=== PATIENT | male | born 1955 | race Caucasian/White ===

== ENCOUNTER 2016-12-26 10:17 | Emergency (ER) | payer OTHER ==
--- NOTE | 2016-12-26 11:32 | EDM.PDOC ---
ED HPI GENERAL MEDICAL PROBLEM - General Chief Complaint: Respiratory Problem Stated Complaint: Shortness of breath Time Seen by Provider: 12/26/16 11:15 Source of Information: Reports: Patient, RN Notes Reviewed History Limitations: Reports: No Limitations - History of Present Illness INITIAL COMMENTS - FREE TEXT/NARRATIVE: 61 year old male presents to the ED with complaints of worsening dyspnea over the past roughly 4 months. The dyspnea is worse with exertion. He denies any chest pain with exertion or associated with the shortness of breath. He's had a cough for a couple weeks which seems to be worsening. It's non-productive. He denies fever or chills. He does have a history of SD several years ago with 1 stent. He is established with a Cardiolologist in [place] and had a normal stress test in July of this year. He says the shortness of breath is worsen when lying flat. He denies any lower extremity swelling or edema. He denies any recent travel, history of blood clots, calf pain, unilateral lower extremity swelling. 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 He says they rarely wear masks unless the dust level is very high. - Related Data Allergies Allergy/AdvReac Type Severity Reaction Status Date / Time No Known Allergies Allergy Verified 12/26/16 10:28 Home Meds: Home Meds Aspirin [Halfprin] 1 tab PO DAILY 01/23/16 [History] Calcium Carbonate/Vitamin D3 [Calcium 500-Vit D3 600 Tablet] 1 tab PO DAILY [History] Cyanocobalamin/FA/Pyridoxine [Folbee] 1 tab PO DAILY 01/23/16 [History] atorvaSTATin [Lipitor] 40 mg PO DAILY 01/23/16 [History] Albuterol [Proventil HFA] 2 puff INH QID PRN #1 inhaler 12/26/16 [Rx] Azithromycin [Zithromax] 250 mg PO DAILY #6 tablet 12/26/16 [Rx] Cholecalciferol (Vitamin D3) [D3 Dots] 2,000 unit PO DAILY 12/26/16 [History] Fenofibrate Nanocrystallized [Tricor] 145 mg PO DAILY 12/26/16 [History] Lutein 20 mg PO DAILY 12/26/16 [History] Metoprolol Succinate 25 mg PO DAILY 12/26/16 [History] Nitroglycerin [Nitrostat] 0.4 mg SL Q5M PRN 12/26/16 [History] predniSONE [Prednisone] 20 mg PO BID #10 tablet 12/26/16 [Rx] Past Medical History HEENT History: Reports: Impaired Vision Cardiovascular History: Reports: Aneurysm, High Cholesterol, Hypertension, SD, Stents Other Cardiovascular History: Stents 11 years ago Respiratory History: Reports: None Gastrointestinal History: Reports: None Genitourinary History: Reports: Renal Calculus Musculoskeletal History: Reports: None Neurological History: Reports: None Psychiatric History: Reports: None Endocrine/Metabolic History: Reports: None Hematologic History: Reports: None Immunologic History: Reports: None Oncologic (Cancer) History: Reports: None Dermatologic History: Reports: None - Infectious Disease History Infectious Disease History: Reports: None - Past Surgical History Head Surgeries/Procedures: Reports: None GI Surgical History: Reports: None Social & Family History - Family History Family Medical History: Noncontributory - Tobacco Use Smoking Status *Q: Former Smoker Used Tobacco, but Quit: No - Caffeine Use Caffeine Use: Reports: Coffee, Soda - Recreational Drug Use Recreational Drug Use: No ED ROS GENERAL - Review of Systems Review Of Systems: See Below Constitutional: Reports: No Symptoms. Denies: Fever, Chills Respiratory: Reports: Shortness of Breath, Cough. Denies: Pleuritic Chest Pain , Sputum, Hemoptysis Cardiovascular: Reports: Dyspnea on Exertion, Orthopnea. Denies: Chest Pain, Edema, Lightheadedness, Palpitations, Syncope GI/Abdominal: Reports: No Symptoms. Denies: Abdominal Pain, Diarrhea, Nausea, Vomiting ED EXAM, GENERAL - Physical Exam Exam: See Below Exam Limited By: No Limitations General Appearance: Alert, WD/WN, No Apparent Distress Respiratory/Chest: No Respiratory Distress, Lungs Clear, No Accessory Muscle Use , Chest Non-Tender, Decreased Breath Sounds Cardiovascular: Normal Peripheral Pulses, Regular Rate, Rhythm, No Edema, No JVD , No Murmur GI/Abdominal: Normal Bowel Sounds, Soft, Non-Tender Extremities: Normal Inspection, Normal Range of Motion, Non-Tender. No: Giovanny' s Sign, Leg Pain, Increased Warmth, Pallor, Redness EKG INTERPRETATION EKG Date: 12/26/16 Time: 11:27 Rhythm: NSR Rate (Beats/Min): 52 [place]: Normal P-Wave: Present QRS: Normal ST-T: Normal QT: Normal EKG Interpretation Comments: EKG read by Dr. Lima. NO acute ischemic changes. Course - Vital Signs Last Recorded V/S: Last Vital Signs Temp 97 F 12/26/16 10:20 Pulse 69 12/26/16 12:55 Resp 24 H 12/26/16 12:55 BP 144/90 H 12/26/16 12:55 Pulse Ox 94 L 12/26/16 12:55 - Orders/Labs/Meds Orders: Active Orders 24 hr Category Date Time Status Cardiac Monitoring [RC] . DIRECTED Care 12/26/16 11:20 Active EKG 12 Lead [EKG Documentation Completion] [RC] STAT Care 12/26/16 11:20 Active Labs: Laboratory Tests 12/26/16 12/26/16 Range/Units 11:32 11:32 WBC 7.87 (4.23-9.07) K/mm3 RBC 5.18 (4.63-6.08) M/mm3 Hgb 15.3 (13.7-17.5) gm/L Hct 44.3 (40.1-51.0) % MCV 85.5 (79.0-92.2) fl MCH 29.5 (25.7-32.2) pg MCHC 34.5 (32.2-35.5) g/dl RDW Std Deviation 41.4 (35.1-43.9) fL Plt Count 287 (163-337) K/mm3 MPV 9.1 L (9.4-12.3) fl Neutrophils % (Manual) 65 H (40-60) % Band Neutrophils % 0 (0-10) % Lymphocytes % (Manual) 27 (20-40) % Atypical Lymphs % 0 % Monocytes % (Manual) 6 (2-10) % Eosinophils % (Manual) 2 (0.8-7.0) % Basophils % (Manual) 0 L (0.2-1.2) Platelet Estimate Adequate RBC Morph Comment Normal Sodium 139 (136-145) mEq/L Potassium 4.1 (3.5-5.1) mEq/L Chloride 105 (98-107) mEq/L Carbon Dioxide 24 (21-32) mEq/L Anion Gap 14.1 (5-15) BUN 22 H (7-18) mg/dL Creatinine 1.0 (0.7-1.3) mg/dL Est Cr Clr Drug Dosing 64.13 mL/min Estimated GFR (MDRD) > 60 (>60) mL/min BUN/Creatinine Ratio 22.0 H (14-18) Glucose 104 (80-115) mg/dL Calcium 10.0 (8.5-10.1) mg/dL Total Bilirubin 0.4 (0.2-1.0) mg/dL AST 24 (15-37) U/L ALT 26 (16-63) U/L Alkaline Phosphatase 61 (46-116) U/L Troponin I < 0.017 (0.00-0.056) ng/mL C-Reactive Protein 0.6 (<1.0) mg/dL NT-Pro-B Natriuret Pep 45 (0-125) pg/mL Total Protein 7.2 (6.4-8.2) g/dl Albumin 3.6 (3.4-5.0) g/dl Globulin 3.6 gm/dL Albumin/Globulin Ratio 1.0 (1-2) - Re-Assessments/Exams Free Text/Narrative Re-Assessment/Exam: CBC, CMP, Troponin, and pro-BNP are all WNL. EKG is negative for acute ST segment changes. 2 view chest x-ray reveals normal heart size. No pulmonary infiltrates or effusions. Patient denies any recent chest pain in the last few months. He has no pain associated with his dyspnea on exertion. I suspect that his symptoms are related to the dust in his workplace. He was instructed to wear a mask at work. He says this is optional. I encouraged him to see his PCP Dr. Martinez next week for recheck. He is to return to the ER with any worsening symptoms or chest pain. He states understanding of this. Will start him on a z-pack, prednisone, and albuterol inhaler. Discharge instructions as documented. Departure - Departure Time of Disposition: 12:39 Disposition: Home, Self-Care 01 Condition: Good Clinical Impression: Shortness of breath, Cough - Discharge Information Prescriptions: Albuterol [Proventil HFA] 2 puff INH QID PRN #1 inhaler PRN Reason: Cough Azithromycin [Zithromax] 250 mg PO DAILY #6 tablet predniSONE [Prednisone] 20 mg PO BID #10 tablet Instructions: Shortness of Breath, [id number], Cough, Adult, [id number] Referrals: Satish Martinez Jr, MD [Primary Care Provider] - Forms: ED Department Discharge Additional Instructions: Wear mask while at work Return to ER with any chest pain or worsening symptoms Follow-up with Dr. Martinez next week Medications: 1. Azithromycin (z-pack) 2 tabs today then 1 tab daily for the next 4 days 2. Prednisone 20mg twice a day for 5 days 3. Albuterol inhaler, 2 puffs 4 times a day as needed for shortness of breath - My Orders Last 24 Hours: My Active Orders 12/26/16 11:20 Cardiac Monitoring [RC] . DIRECTED EKG 12 Lead [EKG Documentation Completion] [RC] STAT - Assessment/Plan Last 24 Hours: My Active Orders 12/26/16 11:20 Cardiac Monitoring [RC] . DIRECTED EKG 12 Lead [EKG Documentation Completion] [RC] STAT
--- NOTE | 2016-12-26 11:49 | CR ---
Chest: Two views of the chest were obtained. Comparison: No previous study. Heart size and mediastinum are normal. Lungs are clear. Bony structures are within normal limits for the patient's age. Impression: 1. Nothing acute is identified on two-view chest x-ray. Diagnostic code #2
[2016-12-26 13:01] VITALS: BP 144/90
== END 2016-12-26 12:55 | disposition home or self-care (01) ==
LOC: JD.ED 10:17
DX: R06.02 Shortness of breath (principal); R05 Cough; I25.2 Old myocardial infarction; I10 Essential (primary) hypertension; E78.00 Pure hypercholesterolemia, unspecified; Z87.442 Personal history of urinary calculi; Z79.899 Other long term (current) drug therapy; Z87.891 Personal history of nicotine dependence; Z79.82 Long term (current) use of aspirin
CPT/HCPCS: 36415; 71020; 71020-26; 80053; 83880; 84484; 85025; 86140; 93005; 99284; 99285-25

== ENCOUNTER 2019-11-09 07:00 | Day surgery (SDC) | payer MEDICARE, OTHER ==
[~2019-11-09 07:00] MED LIST: Lactated Ringers 1,000 ML IV SCH; Lidocaine 1%/Sod Bicarbonate in NS 8.4% 1 ML Syringe IDERM PRN; Sodium Chloride 0.9% 10 ML Syringe FLUSH PRN
[2019-11-09] MEDS ORDERED: Propofol 200 MG/20 ML SDV ONE (07:21)
[2019-11-09] MEDS ORDERED: Rocuronium 50 MG/5 ML Vial ONE (07:21)
[2019-11-09] MEDS ORDERED: Midazolam 1 MG/ML 2 ML SDV ONE (07:21)
[2019-11-09] MEDS ORDERED: fentaNYL 250 MCG/5 ML SDV ONE (07:21)
[2019-11-09] MEDS ORDERED: Succinylcholine/Sod PF 100 MG/5 ML SYRINGE IV ONE (07:22)
[2019-11-09] MEDS ORDERED: Lidocaine 1% 4 ML ONE (07:22)
[2019-11-09] MEDS ORDERED: Bupivacaine 0.5%/EPINEPHrine 1:200,000 50 ML MDV ONE (07:23)
[2019-11-09] MEDS ORDERED: Lidocaine 1% with EPINEPHrine 1:100,000 20 ML MDV ONE (07:23)
--- NOTE | 2019-11-09 07:41 | PCM.PREANE ---
Preanesthetic Assessment - Anesthesia/Transfusion/Family Hx Anesthesia History: Prior Anesthesia Without Reaction Family History of Anesthesia Reaction: No - Review of Systems General: No Symptoms Pulmonary: No Symptoms Cardiovascular: No Symptoms Gastrointestinal: No Symptoms Neurological: No Symptoms Other: Reports: None - Physical Assessment Vital Signs: Last Vital Signs Temp 97.7 F 11/09/19 07:00 Pulse 64 11/09/19 07:00 Resp 16 11/09/19 07:00 BP 143/88 H 11/09/19 07:00 Pulse Ox 96 11/09/19 07:00 ASA Class: 2 Mental Status: Alert & Oriented x3 Airway Class: Mallampati = 3 Dentition: Reports: Normal Dentition, [place](s) Thyro-Mental Finger Breadths: 3 Mouth Opening Finger Breadths: 3 ROM/Head Extension: Full Lungs: Clear to Auscultation, Normal Respiratory Effort Cardiovascular: Regular Rate, Regular Rhythm - Lab Values: Laboratory Last Values COVID-19 PCR Not detected (NOT DETECT) 11/07/19 08:30 - Imaging/EKG Impressions: Cardiac studies reviewed. - Allergies Allergies/Adverse Reactions: Allergies Allergy/AdvReac Type Severity Reaction Status Date / Time No Known Allergies Allergy Verified 11/08/19 13:40 - Acknowledgements Anesthesia Type Planned: General Anesthesia Pt an Appropriate Candidate for the Planned Anesthesia: Yes Alternatives and Risks of Anesthesia Discussed w Pt/Guardian: Yes Pt/Guardian Understands and Agrees with Anesthesia Plan: Yes PreAnesthesia Questionnaire HEENT History: Reports: Impaired Vision Cardiovascular History: Reports: Aneurysm, CAD, High Cholesterol, Hypertension, [place], Stents Other Cardiovascular History: Stents 11 years ago Respiratory History: Reports: COPD, Sleep Apnea, SOB Genitourinary History: Reports: Renal Calculus Immunologic History: Reports: None - Past Surgical History Head Surgeries/Procedures: Reports: None HEENT Surgical History: Reports: None Respiratory Surgical History: Reports: None GI Surgical History: Reports: Colonoscopy, Other (See Below) Other GI Surgeries/Procedures: hemorrhoid banding Female Surgical History: Reports: None Male Surgical History: Reports: None Endocrine Surgical History: Reports: None Neurological Surgical History: Reports: None Musculoskeletal Surgical History: Reports: None Oncologic Surgical History: Reports: None Dermatological Surgical History: Reports: None - SUBSTANCE USE Smoking Status *Q: Former Smoker Recreational Drug Use History: No - HOME MEDS Home Medications: Home Meds Aspirin [Halfprin] 1 tab PO DAILY 01/23/16 [History] Calcium Carbonate/Vitamin D3 [Calcium 500-Vit D3 600 Tablet] 1 tab PO DAILY 12/27 12/10 [History] atorvaSTATin [Lipitor] 40 mg PO DAILY 01/23/16 [History] Cholecalciferol (Vitamin D3) [D3 Dots] 2,000 unit PO DAILY 12/26/16 [History] Lutein 20 mg PO DAILY 12/26/16 [History] Nitroglycerin [Nitrostat] 0.4 mg SL Q5M PRN 12/26/16 [History] Albuterol/Ipratropium [Combivent Respimat] 1 puff INH Q6H PRN 11/08/19 [History] Cyanocobalamin/Folic AC/Vit B6 [Folbee] 1 tab PO DAILY 11/08/19 [History] [place]-3/DHA/Epa/Fish Oil [Fish Oil 500 MG Softgel] 500 mg PO DAILY 11/08/19 [History] - CURRENT (IN HOUSE) MEDS Current Meds: Current Medications Lactated Ringer's (Ringers, Lactated) 1,000 mls @ 125 mls/hr IV ASDIRECTED REMA Stop: 11/09/19 23:00 Lidocaine/Sodium Bicarbonate (Buffered Lidocaine 1% In Ns 8.4%) 0.25 ml IDERM ONETIME PRN PRN Reason: Prior to IV Start Stop: 11/09/19 18:00 Sodium Chloride (Saline Flush) 10 ml FLUSH ASDIRECTED PRN PRN Reason: Keep Vein Open Stop: 11/09/19 18:00 Discontinued Medications Bupivacaine HCl/Epinephrine Bitart (Marcaine 0.5%/Epinephrine 1:200,000) Confirm Administered Dose 50 ml .ROUTE .STK-MED ONE Stop: 11/09/19 07:24 Fentanyl (Sublimaze) Confirm Administered Dose 250 mcg .ROUTE .STK-MED ONE Stop: 11/09/19 07:22 Lidocaine HCl (Xylocaine-Mpf 1%) Confirm Administered Dose 4 mls @ as directed .ROUTE .STK-MED ONE Stop: 11/09/19 07:23 Lidocaine/Epinephrine (Xylocaine 1% With Epinephrine 1:100,000) Confirm Administered Dose 40 ml .ROUTE .STK-MED ONE Stop: 11/09/19 07:24 Midazolam HCl (Versed 1 Mg/Ml) Confirm Administered Dose 4 mg .ROUTE .STK-MED ONE Stop: 11/09/19 07:22 Propofol (Diprivan 20 Ml) Confirm Administered Dose 200 mg .ROUTE .STK-MED ONE Stop: 11/09/19 07:22 Rocuronium [place] (Zemuron) Confirm Administered Dose 50 mg .ROUTE .STK-MED ONE Stop: 11/09/19 07:22
[2019-11-09] MEDS ORDERED: ceFAZolin 1 GM Vial ONE (08:30)
[2019-11-09] MEDS ORDERED: HYDROmorphone 0.5 MG/0.5 ML Syringe ONE ×2 (09:04→10:17)
[2019-11-09] MEDS ORDERED: Ondansetron 4 MG/2 ML SDV ONE (09:06)
[2019-11-09] MEDS ORDERED: fentaNYL 100 MCG/2 ML SDV IVPUSH PRN (09:13)
[2019-11-09] MEDS ORDERED: HYDROmorphone 0.5 MG/0.5 ML Syringe IVPUSH PRN (09:13)
[2019-11-09] MEDS ORDERED: Lactated Ringers 1,000 ML ONE (10:06)
[2019-11-09] MEDS ORDERED: Ketorolac 30 MG/ML SDV ONE (10:23)
--- NOTE | 2019-11-09 10:27 | PCM.OPNOTE ---
- General Post-Op/Procedure Note Date of Surgery/Procedure: 11/09/19 Operative Procedure(s): Laparoscopic ventral hernia repair with mesh Findings: Small 1cm umbilical hernia, additional small 1cm epigastric hernia Pre Op Diagnosis: Umbilical and epigastric hernias Post-Op Diagnosis: Same Anesthesia Technique: General ET Tube Primary Surgeon: Brooke Mcneal Anesthesia Provider: Ricco Sharp Pathology: none Fluid Replacement, Intraop: 1,700 Output, Urine Amount: 0 EBL in mLs: 5 Complications: none apparent Condition: Good
--- NOTE | 2019-11-09 10:29 | PCM.PRNOTE ---
- Free Text/Narrative Note: Operative Report Date of surgery: November 09, 2019 Preoperative diagnosis: Umbilical and epigastric hernia Postoperative diagnosis: same Surgeon: Dr. Brooke Mcneal Anesthesia: General ET Stoker Installation Mechanic: Ricco Sharp CRNA Estimated blood loss: 5 mL IV fluids: 1700 mL Urine output: See anesthesia record Drains and lines: None Indication for the procedure: The patient is a 64-year-old gentleman who presented to my office with complaint of abdominal pain. The patient had workup with a CT scan of the abdomen which revealed an umbilical and epigastric hernia. I discussed a procedure of a laparoscopic ventral hernia repair with mesh with the patient. Risks of infection, bleeding and mesh complication was reviewed, and written consent was obtained Description of the procedure: The patient presented to the outpatient holding area on the day for procedure history and physical were verified and the consent was present and on the chart. was taken back to the operating room and placed in supine position on the operating table. SCD boots were placed and functional prior to the service proce [facility]. The patient received preoperative antibiotics as per SCIP protocol. The patient had successful induction of general anesthesia and was intubated without difficulty. The patient's left arm was tucked and the pressure points were padded. The patient was prepped and draped in standard surgical fashion and a timeout was performed. The abdomen was draped with [place] to begin. A 5 mm incision was then made in the left upper quadrant just under the subcostal margin. A 5 mm port was then inserted into the abdomen with the Visiport technique. The abdomen was insufflated to 15 mmHg. There was no evidence of any injury in the area where we had entered the abdomen. We then administered a TAP block using mixed 1% lidocaine with epinephrine and 0.5% bupivacaine with epinephrine. We then proceeded to survey the area of hernia. A 5 mm port was inserted in the left lower quadrant. An additional 5 mm port was placed in the right abdomen. We proceeded to dissect free the fat and peritoneal covering from the hernia site. A subcentimeter umbilical hernia was identified as well as a subcentimeter epigastric hernia. These were spaced in such a way that they required mesh covering to incorporate both. The right sided abdominal port was upsized to a 12 mm port to facilitate placement of the mesh as well as removal of any dissected abdominal wall tissues. We then used a spinal needle to size the hernia . An oval 4.5 cm x 15.2 cm mesh was selected. Dale-Magdaleno suture were affixed in all 4 quadrants of the mesh. The mesh was then soaked in saline, rolled and placed through this port into the abdomen. The mesh was then unfurled within the abdomen and the fixation site was marked with the spinal needle. A small stab incision was made in the area where we had selected. An Endo Close suture passer was then passed into the abdomen and the tails of the Dale-Magdaleno suture were brought to the abdominal wall and secured. We then proceeded to do the same with the four remaining sutures in all four quadrants of the mesh. A SecureStrap Ethicon tacker was then used to circumferentially tack the to the abdominal wall. There was excellent placement of the mesh. We then used an 0 Vicryl suture and the Endo Close suture passer to close the 12 mm port site hernia defect. The abdomen was then desufflated and the ports were removed. The stay sutures were tied down to the abdominal wall and the subcutaneous tissue was released as necessary for good closure. The incision sites were then closed with 4-0 Monocryl suture. Dermabond surgical glue were used to cover the port sites and stab incisions. The patient tolerated the procedure well and was transported to the PACU in stable condition. All sponge and needle counts correct. The Kamara catheter was removed at the conclusion of the case Complications: None apparent. Disposition: Stable to PACU Brooke Mcneal MD General Surgery
--- NOTE | 2019-11-09 10:41 | PCM.POSTAN ---
POST ANESTHESIA ASSESSMENT - MENTAL STATUS Mental Status: Somnolent - VITAL SIGNS Vital Signs: Last Vital Signs Temp 98.1 F 11/09/19 10:31 Pulse 78 11/09/19 10:31 Resp 16 11/09/19 10:31 BP 126/71 11/09/19 10:31 Pulse Ox 92 L 11/09/19 10:31 - RESPIRATORY Respiratory Status: Respiratory Rate WNL, Airway Patent (with oral a/w #100), O2 Saturation Stable, Supplemental Oxygen - CARDIOVASCULAR CV Status: Pulse Rate WNL, Blood Pressure Stable - GASTROINTESTINAL GI Status: No Symptoms - PAIN Pain Score: 0 - POST OP HYDRATION Hydration Status: Adequate & Stable
--- NOTE | 2019-11-09 12:45 | PCM48HPAN ---
Post Anesthesia Note - EVALUATION WITHIN 48HRS OF ANESTHETIC Vital Signs in Normal Range: Yes Patient Participated in Evaluation: Yes Respiratory Function Stable: Yes Airway Patent: Yes Cardiovascular Function Stable: Yes Hydration Status Stable: Yes Pain Control Satisfactory: Yes Nausea and Vomiting Control Satisfactory: Yes Mental Status Recovered: Yes Vital Signs: Last Vital Signs Temp 98.1 F 11/09/19 10:31 Pulse 65 11/09/19 12:00 Resp 13 11/09/19 12:00 BP 107/69 11/09/19 12:00 Pulse Ox 95 11/09/19 12:38 - COMMENTS/OBSERVATIONS Free Text/Narrative:: No anesthesia complications noted. Patient is preparing to be discharged home
[2019-11-09 13:04] VITALS: PULSE 72
[2019-11-09 13:28] VITALS: BP 112/68
== END 2019-11-09 13:25 | disposition home or self-care (01) ==
LOC: JD.SDS 07:00
PROVIDERS: ATTEND Surgery
PROC: 0WUF47Z Supplement Abdominal Wall with Autologous Tissue Substitute, Percutaneous Endoscopic Approach (ICD-10-PCS; principal; 2019-11-09)
DX: K42.9 Umbilical hernia without obstruction or gangrene (principal); K43.9 Ventral hernia without obstruction or gangrene; I25.2 Old myocardial infarction; I25.10 Atherosclerotic heart disease of native coronary artery without angina pectoris; I10 Essential (primary) hypertension; E78.5 Hyperlipidemia, unspecified; E78.00 Pure hypercholesterolemia, unspecified; I73.9 Peripheral vascular disease, unspecified; G47.30 Sleep apnea, unspecified; Z79.82 Long term (current) use of aspirin; Z79.899 Other long term (current) drug therapy; Z87.891 Personal history of nicotine dependence; Z79.51 Long term (current) use of inhaled steroids; Z11.59 Encounter for screening for other viral diseases
CPT/HCPCS: 49652; C1781; J0330; J0690; J1170; J1885; J2001; J2250; J2370; J2405; J2704; J3010; J3490; J7120; U0002; 00790; 99211